=== PATIENT | female | born 1965 ===

== ENCOUNTER 2018-01-28 14:01 | Emergency (ER) | payer OTHER, SELFPAY ==
[2018-01-28 14:13] VITALS: BP 108/69; PULSE 80; RESP 16; TEMP 37.1; O2SAT 99; BMI 34.0
[2018-01-28 14:48] LABS: INR 1.1 (0.9-1.3); Prothrombin Time 12.3 SECONDS (10.1-12.7)
[2018-01-28 14:51] LABS: PTT Partial Thromboplastin Tim 34 SECONDS (26.4-36.2)
[2018-01-28 14:52] LABS: Hematocrit 23.4 % (36-46); Mean Corpuscular HGB Conc 28.1 % (30-36); Mean Corpuscular Hemoglobin 18.1 PG (26-34); Mean Corpuscular Volume 64.4 fL (80-100); Platelet Count 325 X10^3/uL (150-400); Red Blood Cell Count 3.63 X10^6/uL (4.0-5.2); Red Cell Distribution Width 19.4 % (11.6-14.8); White Blood Cell Count 5.2 X10^3/uL (4.5-11.0)
[2018-01-28 14:57] LABS: Add Manual Diff / Slide Review YES
[2018-01-28 14:58] LABS: Hemoglobin 6.6 g/dL (12.0-16.0)
[2018-01-28 14:59] LABS: Alanine Aminotransferase 13 IU/L (9-52); Albumin 4.1 g/dL (3.5-5.0); Albumin Globulin Ratio 1.1 (1.0-2.8); Alkaline Phosphatase 54 U/L (38-126); Aspartate Aminotransferase 13 IU/L (14-36); BUN Creatinine Ratio 15.5 (6-22); Bilirubin Total 0.3 mg/dL (0.2-1.3); Blood Urea Nitrogen 17 mg/dL (7-17); Calcium 9.4 mg/dL (8.4-10.2); Carbon Dioxide 24 mmol/L (22-32); Chloride 105 mmol/L (98-107); Estimated Glomerular Filt Rate 52.4 mL/min (>60); Globulin 3.8 g/dL (1.7-4.1); Glucose 114 mg/dL (70-100); HEMOLYSIS < 15 (0-50); Potassium 4.2 mmol/L (3.4-5.1); Sodium 142 mmol/L (137-145); Total Protein 7.9 g/dL (6.3-8.2)
[2018-01-28 15:28] VITALS: BP 108/67; PULSE 73; RESP 14; O2SAT 100
--- NOTE | 2018-01-28 15:51 | ED.RECABL ---
HPI - Recheck/Abnormal Lab/Rx General Chief Complaint: Recheck/Abnormal Lab/Rx Stated Complaint: BLOOD TRANSFUSION Time Seen by Provider: 01/28/18 15:51 Source: patient Mode of arrival: ambulatory Limitations: no limitations History of Present Illness HPI narrative: 52-year-old female with a history of diabetes, hypothyroidism, hypertension, hyperlipidemia, and asthma presents to the ED with abnormal labs reported by her primary care provider. Her hemoglobin was 6.6 in the clinic today and she was sent here for further evaluation. She denies shortness of breath or fatigue beyond her normal baseline. She has always attributed her shortness of breath that is only intermittent to her asthma. She attributes her fatigue to hypothyroidism. She denies any known GI bleeding, but she does not look at her stools. Denies diarrhea, constipation, abdominal pain, nausea, vomiting, or other symptoms. She notes occasionally she has a small streak of bleeding on the paper from her hemorrhoids. She has never had a colonoscopy. She is still having periods but denies any heavy bleeding, and is actually on her period at this time. Related Data Home Medications Medication Instructions Recorded Confirmed albuterol sulfate [ProAir HFA] 1 puff INHALATION PRN PRN 01/28/18 01/28/18 fluticasone [Flovent HFA] 1 puff INHALATION DIRECTED 01/28/18 01/28/18 levothyroxine [Synthroid] 125 mcg PO DAILY 01/28/18 01/28/18 lisinopril 10 mg PO DAILY 01/28/18 01/28/18 loratadine 10 mg PO DAILY 01/28/18 01/28/18 metformin 500 mg PO BID 01/28/18 01/28/18 olopatadine [Patanol] 1 drp OPHTHALMIC (EYE) DIRECTED 01/28/18 01/28/18 simvastatin 20 mg PO DAILY 01/28/18 01/28/18 Previous Rx's Medication Instructions Recorded ferrous sulfate 324 mg PO BID #60 tab 01/28/18 Review of Systems Review of Systems All systems reviewed & are unremarkable except as noted in HPI and below Constitutional Denies chills, Denies fever(s), Denies lethargy and Denies weakness Eyes Denies change in vision, Denies eye discharge, Denies irritation and Denies loss of vision ENT Ears, Nose, Mouth, and Throat: Denies change in voice, Denies neck pain and Denies sore throat Cardiovascular Denies chest pain, Denies irregular heart rhythm, Denies lightheadedness, Denies palpitations, Denies dyspnea, Denies dyspnea on exertion and Denies orthopnea Respiratory Denies cough, Denies dyspnea, Denies dyspnea on exertion and Denies wheezing Gastrointestinal Gastrointestinal: Denies abdominal pain, Denies change in bowel habits, Denies diarrhea, Denies nausea and Denies vomiting Genitourinary Denies hematuria, Denies flank pain, Denies urinary incontinence and Denies urinary urgency Musculoskeletal Denies neck pain Integumentary/Breasts Denies pruritus, Denies erythema, Denies rash and Denies wounds Neurologic Denies confusion, Denies loss of vision and Denies weakness Psychiatric Denies anxiety, Denies confusion, Denies depression, Denies homicidal ideation and Denies suicidal ideation Endocrine Denies palpitations Hematologic/Lymphatic Denies easy bruising Allergic/Immunologic Denies wheezing PFSH Social History Smoking Status: Current every day smoker Exam Initial Vital Signs Initial Vital Signs: Vital Signs Temperature 98.8 F 01/28/18 14:13 Pulse Rate 80 01/28/18 14:13 Respiratory Rate 16 01/28/18 14:13 Blood Pressure 108/69 01/28/18 14:13 Pulse Oximetry 99 01/28/18 14:13 Const General: cooperative and well developed Nutritional Appearance: well nourished Orientation: alert, awake, oriented x3 and not confused [facility] Head: normocephalic and atraumatic Ears: external ears normal and TM's normal bilaterally Nose: external nose normal and No nasal discharge Face and sinus: sinuses nontender, face symmetric, no sinus tenderness and No dry mucous membranes Mouth: oral mucosae normal and moist mucous membranes Teeth and gingiva: dentition normal Throat: tonsils normal and uvula midline Eyes General: appearance normal, both eyes and all related structures Eyelids: eyelids normal Conjunctivae: conjunctivae normal Sclera: sclerae normal Pupils: PERRL EOM: EOM intact bilaterally Neck Neck: normal visual inspection, trachea midline, No lymphadenopathy, No midline deformity and No JVD Lymphatic: No lymphedema Chest Chest: normal inspection of the chest Resp Effort & Inspection: normal respiratory effort, able to speak in complete sentences, no respiratory distress and no use of accessory muscles Auscultation: clear to auscultation bilaterally, no rales, no rhonchi and no wheezes Cardio Rate: regular rate Rhythm: regular rhythm Heart Sounds: no click, no gallops, no murmurs and no rubs Pulses: normal peripheral pulses GI Inspection: non-distended Palpation: soft, no hepatosplenomegaly, No guarding, No pulsatile mass and No tender Auscultation: normal bowel sounds Back/Spine/Pelvis Back: No CVA tenderness Cervical Spine: cervical ROM normal and No pain with cervical ROM Thoracic/Lumbar Spine: thoracic and lumbar spine normal to inspection Skin General: no rashes or lesions noted, No jaundice and No petechiae Neuro General: alert, oriented x3, gait normal and no focal motor deficits Speech: speech normal Extrem General: full ROM, no clubbing, cyanosis or edema, no pedal edema and no calf tenderness Psych Appearance: well kempt Mental Status: mental status grossly normal Attitude: cooperative Thought Content: normal and suicidality Judgment: judgment good Course Orders Ordered: ED Orders 01/28/18 14:27 CBC [Complete Blood Count AUTO DIFF] Stat CMP [Comprehensive Metabolic Panel] Stat PTT [Partial Thromboplastin Time] Stat Prothrombin Time INR Stat Type and Screen Stat Consultations Consultation #1: Discussed case with Dr. Méndez who notes that as she is asymptomatic , has normal vital signs, and likely has had a chronic slow bleed he does not feel she needs to be admitted and transfused. Rather he would recommend that she start on iron, follow up with her PCP for outpatient endoscopy/colonoscopy, and avoid NSAIDs. Time: 16:28 Vital Signs - 8 hr 01/28/18 14:13 01/28/18 15:28 01/28/18 16:30 Temperature 98.8 F Pulse Rate 80 73 Pulse Rate [Orthostatic Lying] 67 Pulse Rate [Orthostatic Sitting] 76 Pulse Rate [Orthostatic Standing] 78 Respiratory Rate 16 14 Blood Pressure 108/69 Blood Pressure [Orthostatic Lying] 107/69 Blood Pressure [Orthostatic Sitting] 114/72 Blood Pressure [Orthostatic Standing] 107/74 Blood Pressure [Right Arm] 108/67 Pulse Oximetry 99 100 01/28/18 17:40 01/28/18 17:55 Temperature Pulse Rate 85 71 Pulse Rate [Orthostatic Lying] Pulse Rate [Orthostatic Sitting] Pulse Rate [Orthostatic Standing] Respiratory Rate 12 16 Blood Pressure 104/61 Blood Pressure [Orthostatic Lying] Blood Pressure [Orthostatic Sitting] Blood Pressure [Orthostatic Standing] Blood Pressure [Right Arm] 107/66 Pulse Oximetry 100 100 MDM - Recheck/Abnormal Lab/Rx Lab Data Result diagrams: 01/28/18 14:27 01/28/18 14:27 Lab Results 01/28/18 01/28/18 01/28/18 Range/Units 14:27 14:27 14:27 WBC 5.2 (4.5-11.0) X10^3/uL RBC 3.63 L (4.0-5.2) X10^6/uL Hgb 6.6 L* (12.0-16.0) g/dL Hct 23.4 L (36-46) % MCV 64.4 L (80-100) fL MCH 18.1 L (26-34) PG MCHC 28.1 L (30-36) % RDW 19.4 H (11.6-14.8) % Plt Count 325 (150-400) X10^3/uL Neut % (Auto) Not Reportable Lymph % (Auto) Not Reportable [place]ette % (Auto) Not Reportable Eos % (Auto) Not Reportable Baso % (Auto) Not Reportable Total Counted 100 Seg Neutrophils % 63.0 (38-70) % Band Neutrophils % 1.0 L (3-7) % Lymphocytes % (Manual) 27.0 (25-45) % Monocytes % (Manual) 6.0 (2-11) % Eosinophils % (Manual) 2.0 (2-4) % Basophils % (Manual) 1.0 (0-1) % Neutrophils # (Manual) 3328 ([id number]) /uL RBC Morphology Not Reportable Hypochromasia 2+ H Anisocytosis 1+ H Microcytosis 2+ H PT (10.1-12.7) SECONDS INR (0.9-1.3) APTT (26.4-36.2) SECONDS Sodium 142 (137-145) mmol/L Potassium 4.2 (3.4-5.1) mmol/L Chloride 105 (98-107) mmol/L Carbon Dioxide 24 (22-32) mmol/L BUN 17 (7-17) mg/dL Creatinine 1.10 H (0.52-1.04) mg/dL Estimated GFR 52.4 L (>60) mL/min BUN/Creatinine Ratio 15.5 (6-22) Glucose 114 H (70-100) mg/dL Calcium 9.4 (8.4-10.2) mg/dL Total Bilirubin 0.3 (0.2-1.3) mg/dL AST 13 L (14-36) IU/L ALT 13 (9-52) IU/L Alkaline Phosphatase 54 (38-126) U/L Total Protein 7.9 (6.3-8.2) g/dL Albumin 4.1 (3.5-5.0) g/dL Globulin 3.8 (1.7-4.1) g/dL Albumin/Globulin Ratio 1.1 (1.0-2.8) Blood Type O Positive Antibody Screen Negative 01/28/18 Range/Units 14:27 WBC (4.5-11.0) X10^3/uL RBC (4.0-5.2) X10^6/uL Hgb (12.0-16.0) g/dL Hct (36-46) % MCV (80-100) fL MCH (26-34) PG MCHC (30-36) % RDW (11.6-14.8) % Plt Count (150-400) X10^3/uL Neut % (Auto) Lymph % (Auto) [place] % (Auto) Eos % (Auto) Baso % (Auto) Total Counted Seg Neutrophils % (38-70) % Band Neutrophils % (3-7) % Lymphocytes % (Manual) (25-45) % Monocytes % (Manual) (2-11) % Eosinophils % (Manual) (2-4) % Basophils % (Manual) (0-1) % Neutrophils # (Manual) ([id number]) /uL RBC Morphology Hypochromasia Anisocytosis Microcytosis PT 12.3 (10.1-12.7) SECONDS INR 1.1 (0.9-1.3) APTT 34 (26.4-36.2) SECONDS Sodium (137-145) mmol/L Potassium (3.4-5.1) mmol/L Chloride (98-107) mmol/L Carbon Dioxide (22-32) mmol/L BUN (7-17) mg/dL Creatinine (0.52-1.04) mg/dL Estimated GFR (>60) mL/min BUN/Creatinine Ratio (6-22) Glucose (70-100) mg/dL Calcium (8.4-10.2) mg/dL Total Bilirubin (0.2-1.3) mg/dL AST (14-36) IU/L ALT (9-52) IU/L Alkaline Phosphatase (38-126) U/L Total Protein (6.3-8.2) g/dL Albumin (3.5-5.0) g/dL Globulin (1.7-4.1) g/dL Albumin/Globulin Ratio (1.0-2.8) Blood Type Antibody Screen MDM Narrative Medical decision making narrative: Patient is here with acute recognition of chronic anemia, likely of GI source as her guaiac was positive today. She is not orthostatic and her vitals are normal. She is relatively asymptomatic although she has been attributing some of her fatigue to her thyroid and her mild shortness of breath occasionally 2 asthma. Initially I considered admission, but after discussion with hospitalist I think she can safely be followed up as an outpatient which she will be happy about. [place]. [place] Departure Patient Disposition: Home, Self-Care Clinical Impression: Hypochromic microcytic anemia, GI (gastrointestinal bleed) Discharge Date/Time: 01/28/18 17:55 Interventions: ED Discharge Assessment Last Done: 01/28/18 17:55 Instructions: Anemia, Gastrointestinal Bleeding Activity Restrictions/Additional Instructions: Thank you for trusting us with your care today. Your blood counts do show anemia but as you do not have any symptoms you do not need a transfusion here today. The source of bleeding is most likely from the GI tract and you need to have an upper endoscopy done as well a colonoscopy in the next week. I attempted to contact Dr. Jean, your primary care provider to help coordinate your care but he was unavailable. Please follow up with him tomorrow and have him help coordinate your care. Start an iron supplement twice daily. Return immediately if he develops shortness of breath, chest pain, or increasing weakness. If you're having multiple/frequent bowel movements a day you should return for repeat blood work. Do not take any ibuprofen/Aleve/Advil/aspirin or any other NSAIDs. Prescriptions: New ferrous sulfate 324 mg (65 mg iron) tablet,delayed release (DR/EC) 324 mg PO BID Qty: 60 RF: 0 No Action metformin 500 mg tablet 500 mg PO BID RF: 0 simvastatin 20 mg tablet 20 mg PO DAILY RF: 0 levothyroxine [Synthroid] 125 mcg tablet 125 mcg PO DAILY RF: 0 lisinopril 10 mg tablet 10 mg PO DAILY RF: 0 albuterol sulfate [ProAir HFA] 90 mcg/actuation HFA aerosol inhaler 1 puff Inhalation PRN PRN (Reason: Shortness Of Breath) RF: 0 olopatadine [Patanol] 0.1 % drops 1 drp ophthalmic (eye) DIRECTED RF: 0 fluticasone [Flovent HFA] 220 mcg/actuation HFA aerosol inhaler 1 puff Inhalation DIRECTED RF: 0 loratadine 10 mg tablet 10 mg PO DAILY RF: 0
[2018-01-28 15:52] LABS: Neutrophils Absolute Manual 3328 /uL (3000-5900); Total Cells Counted 100
[2018-01-28 15:53] LABS: Anisocytosis 1+; Hypochromasia 2+; Microcytosis 2+
[2018-01-28 16:30] VITALS: BP 107/69; BP 107/74; BP 114/72; PULSE 67; PULSE 76; PULSE 78
[2018-01-28 17:40] VITALS: BP 107/66; PULSE 85; RESP 12; O2SAT 100
[2018-01-28 17:55] VITALS: BP 104/61; PULSE 71; RESP 16; O2SAT 100
== END 2018-01-28 17:55 | disposition home or self-care (01) ==
PROVIDERS: Emergency Provider Emergency Medicine
DX: D50.9 Iron deficiency anemia, unspecified (principal); K92.2 Gastrointestinal hemorrhage, unspecified
CPT/HCPCS: 36415; 80053; 81003; 85025; 85610; 85730; 86850; 86900; 86901; 99283